=== PATIENT | male | born 1950 | race Caucasian/White ===

== ENCOUNTER → 2018-05-20 | Outpatient (CLI) | payer BC ==
[2018-05-20 09:42] LABS: HGB 15.3 gm/dL (13.0-17.5); MCH 29.6 pg (25.0-35.0); MCV 92.4 fL (80.0-100.0); Mean Platelet Volume 7.5; Platelet Count 219 k/uL (150-450); RBC 5.19 m/uL (4.30-5.90); RDW 13.1 % (11.5-15.5); WBC 5.1 k/uL (3.8-10.6)
[2018-05-20 09:53] LABS: Anion Gap 7 mmol/L; Blood Urea Nitrogen 18 mg/dL (9-20); Calcium 9.4 mg/dL (8.4-10.2); Carbon Dioxide 27 mmol/L (22-30); Chloride 108 mmol/L (98-107); Glucose 110 mg/dL (74-99); Potassium 4.9 mmol/L (3.5-5.1); Sodium 142 mmol/L (137-145)
== END | disposition home or self-care (01) ==
LOC: LABWHC1 08:49
PROVIDERS: ATTEND Internal Medicine Cardiovascular Disease
DX: I48.91 Unspecified atrial fibrillation (principal)
CPT/HCPCS: 36415; 80048; 85027; 85610

== ENCOUNTER → 2019-04-29 | Outpatient (CLI) | payer MEDICARE, BC ==
[2019-04-29 16:40] LABS: African American GFR (CKD) 107.1 (60.0-200.0); Albumin 4.4 g/dL (3.80-4.90); Albumin/Globulin Ratio 2.32 (1.60-3.17); BUN/Creat Ratio 17.5 Ratio (12.00-20.00); Calcium 9.1 mg/dL (8.7-10.3); Chol/HDL Ratio 3.7; Globulin 1.9 g/dL (1.6-3.3); Non-African American GFR(CKD) 92.4 (60.0-200.0); Potassium 4.7 mmol/L (3.5-5.5); Total Protein 6.3 g/dL (6.2-8.2)
== END | disposition home or self-care (01) ==
LOC: LABWHC1 11:07
PROVIDERS: ATTEND Internal Medicine Interventional Cardiology
DX: E78.2 Mixed hyperlipidemia (principal)
CPT/HCPCS: 36415; 80053; 80061

== ENCOUNTER → 2020-04-20 | Outpatient (CLI) | payer MEDICARE, BC ==
[2020-04-20 21:30] LABS: African American GFR (CKD) 102.1 (60.0-200.0); Albumin 4.7 g/dL (3.80-4.90); Albumin/Globulin Ratio 2.61 (1.60-3.17); Anion Gap 7.2 mmol/L (4.00-12.00); BUN/Creat Ratio 22.22 Ratio (12.00-20.00); Calcium 9.5 mg/dL (8.7-10.3); Carbon Dioxide 25.8 mmol/L (21.6-31.8); Chol/HDL Ratio 2.65; Globulin 1.8 g/dL (1.6-3.3); LDL Cholesterol,Calculated 51.4 mg/dL (0.0-131.0); Non-African American GFR(CKD) 88.1 (60.0-200.0); Potassium 4.4 mmol/L (3.5-5.5); Total Bilirubin 1.5 mg/dL (0.2-1.2); Total Protein 6.5 g/dL (6.2-8.2); VLDL Calculation 32.6 mg/dL (5.00-40.00)
== END | disposition home or self-care (01) ==
LOC: LABWHC1 12:26
PROVIDERS: ATTEND Nurse Practitioner Adult Health
DX: I10 Essential (primary) hypertension (principal); E78.2 Mixed hyperlipidemia
CPT/HCPCS: 36415; 80053; 80061

== ENCOUNTER 2021-04-23 18:08 | Observation (INO) | payer MEDICARE, BC ==
--- NOTE | 2021-04-23 18:38 | ED ---
General Adult HPI - General Chief complaint: Arrhythmia/Palpitations Stated complaint: AFib Time Seen by Provider: 04/23/21 18:19 Source: patient, family, RN notes reviewed Mode of arrival: ambulatory Limitations: no limitations - History of Present Illness Initial comments: Patient is a pleasant 70-year-old male presenting to the emergency department w ith concerns for atrophic ablation. Patient does have a history of similar symptoms several years ago. Patient did need to be cardioverted at that time. Patient does see Dr. lynch on. Patient is not currently on any blood thinners. Patient had heaviness in his chest starting yesterday morning. None today. Patient did check his monitor yesterday and today with report of A. fib with heart rate of 150. Patient does not have palpitations. No dyspnea. - Related Data Home Medications Medication Instructions Recorded Confirmed Aspirin EC [Ecotrin Low Dose] 81 mg PO DAILY 04/23/21 04/23/21 Atorvastatin [Lipitor] 20 mg PO DAILY 04/23/21 04/23/21 Metoprolol Succinate [Toprol XL] 25 mg PO BID 04/23/21 04/23/21 Allergies Allergy/AdvReac Type Severity Reaction Status Date / Time No Known Allergies Allergy Verified 04/23/21 19:34 Review of Systems ROS Statement: Those systems with pertinent positive or pertinent negative responses have been documented in the HPI. ROS Other: All systems not noted in ROS Statement are negative. Constitutional: Denies: fever Eyes: Denies: eye pain ENT: Denies: ear pain Respiratory: Denies: cough Cardiovascular: Reports: as per HPI Endocrine: Denies: fatigue Gastrointestinal: Denies: abdominal pain Genitourinary: Denies: dysuria Musculoskeletal: Denies: back pain Skin: Denies: rash Neurological: Denies: weakness Past Medical History Past Medical History: Atrial Fibrillation, Hyperlipidemia Additional Past Medical History / Comment(s): cardiac ablation. History of Any Multi-Drug Resistant Organisms: None Reported Past Surgical History: No Surgical Hx Reported, Hernia Repair Past Psychological History: No Psychological Hx Reported Smoking Status: Former smoker Past Alcohol Use History: None Reported Past Drug Use History: None Reported General Exam Limitations: no limitations General appearance: alert, in no apparent distress Head exam: Present: normocephalic Eye exam: Present: normal appearance Neck exam: Present: normal inspection Respiratory exam: Present: normal lung sounds bilaterally Cardiovascular Exam: Present: tachycardia, irregular rhythm Expanded Peripheral pulses: 2+: Radial (R), Radial (L), Dorsalis Pedis (R), Dorsalis Pedis (L) GI/Abdominal exam: Present: soft. Absent: tenderness Extremities exam: Present: normal inspection. Absent: pedal edema, calf tenderness Neurological exam: Present: alert Psychiatric exam: Present: normal affect, normal mood Skin exam: Present: normal color Course Vital Signs 04/23/21 04/23/21 04/23/21 18:18 19:10 20:00 Temperature 97.8 F Pulse Rate 60 86 71 Respiratory 18 16 15 Rate Blood Pressure 150/93 131/86 121/94 O2 Sat by Pulse 100 Oximetry EKG Findings - EKG Comments: EKG Findings:: A. fib with a rate of 103, RVR. QRS 92. QT 350. QTC 458. Normal axis. Normal QRS. No acute ST change. Medical Decision Making - Medical Decision Making Heart rate improve with Cardizem. Patient will be started on anticoagulation with consult with cardiology. Case discussed with Dr. perez, who will admit for hospital call. - Lab Data Result diagrams: 04/23/21 18:40 04/23/21 18:40 Lab Results 04/23/21 04/23/21 04/23/21 Range/Units 18:40 18:40 18:40 WBC 8.7 (3.8-10.6) k/uL RBC 5.04 (4.30-5.90) m/uL Hgb 16.0 (13.0-17.5) gm/dL Hct 46.9 (39.0-53.0) % MCV 93.1 (80.0-100.0) fL MCH 31.8 (25.0-35.0) pg MCHC 34.2 (31.0-37.0) g/dL RDW 12.6 (11.5-15.5) % Plt Count 224 (150-450) k/uL MPV 8.6 Neutrophils % 48 % Lymphocytes % 41 % Monocytes % 6 % Eosinophils % 3 % Basophils % 1 % Neutrophils # 4.2 (1.3-7.7) k/uL Lymphocytes # 3.6 (1.0-4.8) k/uL Monocytes # 0.5 (0-1.0) k/uL Eosinophils # 0.3 (0-0.7) k/uL Basophils # 0.0 (0-0.2) k/uL PT 10.5 (9.0-12.0) sec INR 1.0 (<1.2) APTT 24.5 (22.0-30.0) sec Sodium 136 L (137-145) mmol/L Potassium 4.4 (3.5-5.1) mmol/L Chloride 104 (98-107) mmol/L Carbon Dioxide 23 (22-30) mmol/L Anion Gap 9 mmol/L BUN 20 (9-20) mg/dL Creatinine 0.89 (0.66-1.25) mg/dL Est GFR (CKD-EPI)AfAm >90 (>60 ml/min/1.73 sqM) Est GFR (CKD-EPI)NonAf 88 (>60 ml/min/1.73 sqM) Glucose 102 H (74-99) mg/dL Calcium 9.2 (8.4-10.2) mg/dL Magnesium 2.1 (1.6-2.3) mg/dL Total Bilirubin 1.3 (0.2-1.3) mg/dL AST 31 (17-59) U/L ALT 24 (4-49) U/L Alkaline Phosphatase 61 (38-126) U/L Troponin I (0.000-0.034) ng/mL Total Protein 7.2 (6.3-8.2) g/dL Albumin 4.4 (3.5-5.0) g/dL TSH 4.070 (0.465-4.680) mIU/L Free T4 1.22 (0.78-2.19) ng/dL Free T3 pg/mL 3.8 (2.8-5.3) pg/ml Coronavirus (PCR) (Not Detectd) 04/23/21 04/23/21 Range/Units 18:40 18:45 WBC (3.8-10.6) k/uL RBC (4.30-5.90) m/uL Hgb (13.0-17.5) gm/dL Hct (39.0-53.0) % MCV (80.0-100.0) fL MCH (25.0-35.0) pg MCHC (31.0-37.0) g/dL RDW (11.5-15.5) % Plt Count (150-450) k/uL MPV Neutrophils % % Lymphocytes % % Monocytes % % Eosinophils % % Basophils % % Neutrophils # (1.3-7.7) k/uL Lymphocytes # (1.0-4.8) k/uL Monocytes # (0-1.0) k/uL Eosinophils # (0-0.7) k/uL Basophils # (0-0.2) k/uL PT (9.0-12.0) sec INR (<1.2) APTT (22.0-30.0) sec Sodium (137-145) mmol/L Potassium (3.5-5.1) mmol/L Chloride (98-107) mmol/L Carbon Dioxide (22-30) mmol/L Anion Gap mmol/L BUN (9-20) mg/dL Creatinine (0.66-1.25) mg/dL Est GFR (CKD-EPI)AfAm (>60 ml/min/1.73 sqM) Est GFR (CKD-EPI)NonAf (>60 ml/min/1.73 sqM) Glucose (74-99) mg/dL Calcium (8.4-10.2) mg/dL Magnesium (1.6-2.3) mg/dL Total Bilirubin (0.2-1.3) mg/dL AST (17-59) U/L ALT (4-49) U/L Alkaline Phosphatase (38-126) U/L Troponin I <0.012 (0.000-0.034) ng/mL Total Protein (6.3-8.2) g/dL Albumin (3.5-5.0) g/dL TSH (0.465-4.680) mIU/L Free T4 (0.78-2.19) ng/dL Free T3 pg/mL (2.8-5.3) pg/ml Coronavirus (PCR) Not Detected (Not Detectd) Critical Care Time Critical Care Time: Yes Total Critical Care Time: 32 Disposition Clinical Impression: Atrial fibrillation, Tachycardia Disposition: ADMITTED IP TO THIS [facility] Is patient prescribed a controlled substance at d/c from ED?: No Referrals: Carlos Dale MD [Primary Care Provider] - 1-2 days Decision Time: 20:28
[2021-04-23] MEDS ORDERED: DILTIAZEM 125 MG in SODIUM CHLORIDE 0.9% 100 ML IV SCH (18:45)
[2021-04-23 18:56] LABS: Partial Thromboplastin Time 24.5 sec (22.0-30.0); Prothrombin Time 10.5 sec (9.0-12.0)
[2021-04-23 18:57] LABS: Basophils % (A) 1 %; Eosinophils # (A) 0.3 k/uL (0-0.7); Eosinophils % (A) 3 %; HCT 46.9 % (39.0-53.0); Lymphocytes # (A) 3.6 k/uL (1.0-4.8); Lymphocytes % (A) 41 %; MCH 31.8 pg (25.0-35.0); MCHC 34.2 g/dL (31.0-37.0); MCV 93.1 fL (80.0-100.0); Mean Platelet Volume 8.6; Monocytes # (A) 0.5 k/uL (0-1.0); Monocytes % (A) 6 %; Neutrophils # (A) 4.2 k/uL (1.3-7.7); Neutrophils % (A) 48 %; Platelet Count 224 k/uL (150-450); RBC 5.04 m/uL (4.30-5.90); RDW 12.6 % (11.5-15.5); WBC 8.7 k/uL (3.8-10.6)
[2021-04-23 18:58] LABS: ALT 24 U/L (4-49); AST 31 U/L (17-59); African American GFR (CKD) >90 (>60 ml/min/1.73 sqM); Albumin 4.4 g/dL (3.5-5.0); Alkaline Phosphatase 61 U/L (38-126); Anion Gap 9 mmol/L; Blood Urea Nitrogen 20 mg/dL (9-20); Calcium 9.2 mg/dL (8.4-10.2); Carbon Dioxide 23 mmol/L (22-30); Chloride 104 mmol/L (98-107); Glucose 102 mg/dL (74-99); Magnesium 2.1 mg/dL (1.6-2.3); Non-African American GFR(CKD) 88 (>60 ml/min/1.73 sqM); Potassium 4.4 mmol/L (3.5-5.1); Sodium 136 mmol/L (137-145); Total Bilirubin 1.3 mg/dL (0.2-1.3); Total Protein 7.2 g/dL (6.3-8.2)
--- NOTE | 2021-04-23 19:11 | XR ---
EXAMINATION TYPE: XR chest 1V portable DATE OF EXAM: 04/23/2021 COMPARISON: NONE HISTORY: Dysrhythmia TECHNIQUE: Single view FINDINGS: There is no heart failure no confluent pneumonic infiltrate. Costophrenic angles are clear. There are no hilar masses. Costophrenic angles are clear. There are no hilar masses. IMPRESSION: No active cardiopulmonary disease. Normal heart.
[2021-04-23 19:15] LABS: T4, Free (Free Thyroxine) 1.22 ng/dL (0.78-2.19)
[2021-04-23] MEDS ORDERED: HEPARIN SODIUM 1,000 UN/ML (10ML VL) IV PRN (20:29)
[2021-04-23] MEDS ORDERED: HEPARIN SODIUM 1,000 UN/ML (10ML VL) IV ONE (20:29)
[2021-04-23] MEDS ORDERED: NALOXONE 0.4 MG/ML 1 ML VIAL IV PRN (20:29)
[2021-04-23] MEDS: HEPARIN SOD,PORK IN 0.45% NACL 25,000 UNIT in 0.45% NACL 1 250ML.BAG IV SCH (21:15)
[2021-04-23] MEDS: SODIUM CHLORIDE 0.9% 1,000 ML IV SCH (21:19)
--- NOTE | 2021-04-23 23:37 | P.HPIM ---
History of Present Illness H&P Date: 04/23/21 Patient is a 70-year-old male with a PMH of hypertension, hyperlipidemia, paroxysmal A. fib not on anticoagulation (unknown reason), who presented to the emergency room with complaints of feeling fatigued. The patient reports that he had been in his usual state of health until yesterday morning when he woke up feeling diffusely weak. He continued experiencing fatigue and had some occasional palpitations at which time his brought him to the emergency room. He denied experiencing chest discomfort, shortness of breath, nausea, vomiting, diaphoresis. Reports that his Lopressor dose was recently decreased from 25 mg in the morning and 50 mg at bedtime to 25 mg twice a day. He reports following up with cardiology every year. Denied experiencing cough, fever, chills, abdominal pain, diarrhea. In the emergency room EKG revealed A. fib with RVR at [address]/T-wave changes noted as reviewed by me. Chest x- ray was unremarkable. Laboratory evaluation revealed a troponin of less than 0.012. Review of systems: Pertinent positives and negatives as discussed in HPI, a complete review of systems was performed and all other systems are negative. Physical examination: General: non toxic, no distress, appears at stated age, overweight Derm: no unusual rashes/lesions no unusual ecchymoses, warm, dry Head: atraumatic, normocephalic, symmetric Eyes: EOMI, no lid lag, anicteric sclera, pupils equal round reactive to light ENT: Nose and ears atraumatic, no thrush, no pharyngeal erythema Neck: No thyromegaly, no cervical lymphadenopathy, trachea midline, supple Mouth: no lip lesion, mucus membranes moist Cardiovascular: S1S2 reg, no murmur, positive posterior tibial pulse bilateral, no edema, capillary refill less than 2 seconds Lungs: CTA bilateral, no rhonchi, no rales , no accessory muscle use Abdominal: soft, nontender to palpation, no guarding, no appreciable or ganomegaly, normal bowel sounds Ext: no gross muscle atrophy, muscle strength 5 out of 5 in all 4 extremities grossly, no contractures, Neuro: CN II-XI grossly intact, light touch intact all 4 extremities, finger to nose within normal limits, Psych: Alert, oriented, appropriate affect Assessment/plan A. fib with RVR -Continue with Cardizem and heparin infusions -Cardiology consult -Cardiac monitoring Chronic conditions: Hypertension, hyperlipidemia -Continue with home meds DVT prophylaxis -Heparin infusion The patient is admitted with an anticipated less than 2 midnight stay for evalu ation of Afib CODE STATUS: Full Code Discussed with: Patient Anticipated discharge date: in am Anticipated discharge place: Home Past Medical History Past Medical History: Atrial Fibrillation, Hyperlipidemia Additional Past Medical History / Comment(s): cardiac ablation. History of Any Multi-Drug Resistant Organisms: None Reported Past Surgical History: No Surgical Hx Reported, Hernia Repair Past Psychological History: No Psychological Hx Reported Smoking Status: Former smoker Past Alcohol Use History: None Reported Past Drug Use History: None Reported Medications and Allergies Home Medications Medication Instructions Recorded Confirmed Type Aspirin EC [Ecotrin Low Dose] 81 mg PO DAILY 04/23/21 04/23/21 History Atorvastatin [Lipitor] 20 mg PO DAILY 04/23/21 04/23/21 History Metoprolol Succinate [Toprol XL] 25 mg PO BID 04/23/21 04/23/21 History Allergies Allergy/AdvReac Type Severity Reaction Status Date / Time No Known Allergies Allergy Verified 04/23/21 19:34 Physical Exam Vitals: Vital Signs Temp Pulse Pulse Resp BP BP Pulse Ox 04/23/21 22:15 97.9 F 83 18 139/99 98 04/23/21 21:00 97.8 F 84 16 134/96 98 04/23/21 20:00 71 15 121/94 04/23/21 19:10 86 16 131/86 04/23/21 18:18 97.8 F 60 18 150/93 100 Intake and Output 04/23/21 04/23/21 04/23/21 06:59 14:59 22:59 Other: Weight 90.718 kg Results CBC & Chem 7: 04/23/21 18:40 04/23/21 18:40 Labs: Abnormal Lab Results - Last 24 Hours (Table) 04/23/21 Range/Units 18:40 Sodium 136 L (137-145) mmol/L Glucose 102 H (74-99) mg/dL
[2021-04-24 04:15] LABS: Basophils # (A) 0.1 k/uL (0-0.2); Basophils % (A) 1 %; Eosinophils # (A) 0.3 k/uL (0-0.7); Eosinophils % (A) 4 %; HCT 45.4 % (39.0-53.0); HGB 15.3 gm/dL (13.0-17.5); Lymphocytes # (A) 3.6 k/uL (1.0-4.8); Lymphocytes % (A) 47 %; MCH 31.7 pg (25.0-35.0); MCHC 33.8 g/dL (31.0-37.0); MCV 93.7 fL (80.0-100.0); Monocytes # (A) 0.5 k/uL (0-1.0); Monocytes % (A) 6 %; Neutrophils # (A) 3.1 k/uL (1.3-7.7); Neutrophils % (A) 40 %; Platelet Count 207 k/uL (150-450); RBC 4.84 m/uL (4.30-5.90); RDW 12.1 % (11.5-15.5); WBC 7.7 k/uL (3.8-10.6)
[2021-04-24 04:26] LABS: Prothrombin Time 11.2 sec (9.0-12.0)
--- NOTE | 2021-04-24 09:44 | P.PN ---
Subjective Patient was examined at bedside today not complaining of any new symptomatology. She states that this started apparently last week also to Sunday when he started having some palpitations. He was instructed by his to come in to the emergency department who's a RN. Of note patient does have a history of cardioversion a few years ago and has not been on any anticoagulation. He does endorse drinking significantly approximately 10-12 beers weekly with 4-5 shots. Other risk factors he try to identify was use of Rogaine and family stressors. Objective - Vital Signs Vital signs: Vital Signs Temp 97.7 F 04/24/21 07:00 Pulse 74 04/24/21 07:00 Resp 18 04/24/21 07:00 BP 107/76 04/24/21 07:00 Pulse Ox 97 04/24/21 07:00 Intake & Output 04/23/21 04/24/21 04/24/21 18:59 06:59 18:59 Intake Total 75.167 Balance 75.167 Weight 90.718 kg 90.718 kg Intake: Intake, IV Titration 75.167 Amount Heparin Sod,Pork in 0.45% 75.167 NaCl 25,000 unit In 0.45 % NaCl 1 250ml.bag @ 11. 0232 UNITS/KG/HR 10 mls/ hr IV .Q24H [facility] Rx#: [id number] Other: Voiding Method Toilet # Voids 1 - Exam Physical examination: General: non toxic, no distress, appears at stated age, overweight Derm: no unusual rashes/lesions no unusual ecchymoses, warm, dry Head: atraumatic, normocephalic, symmetric Mouth: no lip lesion, mucus membranes moist Cardiovascular: S1S2 reg, no murmur, positive, no edema, capillary refill less than 2 seconds Lungs: CTA bilateral, no rhonchi, no rales , no accessory muscle use Abdominal: soft, nontender to palpation, no guarding, no appreciable organomegaly, normal bowel sounds Ext: no gross muscle atrophy, muscle strength 5 out of 5 in all 4 extremities grossly, no contractures, Neuro: CN II-XI grossly intact, light touch intact all 4 extremities, finger to nose within normal limits, Psych: Alert, oriented, appropriate affect - Labs CBC & Chem 7: 04/24/21 03:46 04/23/21 18:40 Labs: Abnormal Lab Results - Last 24 Hours (Table) 04/23/21 04/24/21 Range/Units 18:40 03:46 APTT 36.0 H (22.0-30.0) sec Sodium 136 L (137-145) mmol/L Glucose 102 H (74-99) mg/dL Assessment and Plan Assessment: Assessment: #1 atrial fibrillation with RVR status post cardioversion in the past #2 essential hypertension #3 hyperlipidemia #4 alcohol dependence Plan: -Admit to medicine for close monitoring -Aspiration/fall precaution -Continue with Cardizem drip which has been held patient's currently rate controlled maintain heart rate less than 110 bpm -TSH within normal limits -Obtain 2-D echocardiogram -Patient probably started on heparin drip and transition to oral on discharge -Cardiology consulted -DVT prophylaxis
[2021-04-24] MEDS: ASPIRIN 81 MG PO SCH (09:45)
[2021-04-24] MEDS: METOPROLOL SUCCINATE (ER) 25 MG TAB.ER.24H PO SCH ×2 (09:45→20:37)
[2021-04-24] MEDS: ATORVASTATIN 20 MG TAB PO SCH (09:45)
--- NOTE | 2021-04-24 12:03 | P.CRDCN ---
History of Present Illness Consult date: 04/24/21 Chief complaint: Heart racing History of present illness: The patient is a pleasant 70-year-old gentleman with a past medical history significant for paroxysmal atrial fibrillation for some reasons he was not receiving oral anticoagulation, as well as hypertension and dyslipidemia who presented to the hospital because he was not feeling well. The patient was experiencing symptoms of being tired and fatigued and beside that he has been experiencing symptoms of heart racing/fluttering but no dizziness or lightheadedness and no presyncope or syncope. No symptoms of anginal chest pain or chest discomfort or shortness of breath. 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 Currently he is in A. fib with controlled heart rate on the current dose of beta raghu which is Toprol-XL 25 mg by mouth twice a day. He is on heparin IV. The EKG showed A. fib with diffuse nonspecific ST and T wave abnormalities. 2 sets of cardiac enzymes were checked and came in to be unremarkable. He is overall feeling better. No history of coronary artery disease or congestive heart failure. Past Medical History Past Medical History: Atrial Fibrillation, Hyperlipidemia Additional Past Medical History / Comment(s): cardiac ablation. History of Any Multi-Drug Resistant Organisms: None Reported Past Surgical History: No Surgical Hx Reported, Hernia Repair Past Psychological History: No Psychological Hx Reported Smoking Status: Former smoker Past Alcohol Use History: None Reported Past Drug Use History: None Reported Medications and Allergies Home Medications Medication Instructions Recorded Confirmed Type Aspirin EC [Ecotrin Low Dose] 81 mg PO DAILY 04/23/21 04/23/21 History Atorvastatin [Lipitor] 20 mg PO DAILY 04/23/21 04/23/21 History Metoprolol Succinate [Toprol XL] 25 mg PO BID 04/23/21 04/23/21 History Allergies Allergy/AdvReac Type Severity Reaction Status Date / Time No Known Allergies Allergy Verified 04/23/21 19:34 Physical Exam Vitals: Vital Signs Temp Pulse Pulse Resp BP BP Pulse Ox 04/24/21 07:00 97.7 F 74 18 107/76 97 04/24/21 01:36 97.7 F 71 16 101/71 100 04/23/21 22:15 97.9 F 83 18 139/99 98 04/23/21 21:00 97.8 F 84 16 134/96 98 04/23/21 20:00 71 15 121/94 04/23/21 19:10 86 16 131/86 04/23/21 18:18 97.8 F 60 18 150/93 100 Intake and Output 04/23/21 04/24/21 04/24/21 22:59 06:59 14:59 Intake Total 75.167 59.858 Balance 75.167 59.858 Intake: Intake, IV Titration 75.167 59.858 Amount Heparin Sod,Pork in 0.45% 75.167 59.858 NaCl 25,000 unit In 0.45 % NaCl 1 250ml.bag @ 11. 0232 UNITS/KG/HR 10 mls/ hr IV .Q24H [facility] Rx#: [id number] Other: Voiding Method Toilet Toilet # Voids 0 1 Weight 90.718 kg - Constitutional General appearance: no acute distress - Respiratory Respiratory: bilateral: diminished - Cardiovascular Rhythm: irregularly irregular Heart sounds: normal: S1, S2 Results 04/24/21 03:46 04/23/21 18:40 Cardiac Enzymes 04/23/21 04/23/21 04/23/21 Range/Units 18:40 18:40 21:35 AST 31 (17-59) U/L Troponin I <0.012 <0.012 (0.000-0.034) ng/mL 04/24/21 Range/Units 00:39 AST (17-59) U/L Troponin I <0.012 (0.000-0.034) ng/mL Coagulation 04/23/21 04/24/21 04/24/21 Range/Units 18:40 03:46 11:10 PT 10.5 11.2 (9.0-12.0) sec APTT 24.5 36.0 H 51.2 H (22.0-30.0) sec CBC 04/23/21 04/24/21 Range/Units 18:40 03:46 WBC 8.7 7.7 (3.8-10.6) k/uL RBC 5.04 4.84 (4.30-5.90) m/uL Hgb 16.0 15.3 (13.0-17.5) gm/dL Hct 46.9 45.4 (39.0-53.0) % Plt Count 224 207 (150-450) k/uL Comprehensive Metabolic Panel 04/23/21 Range/Units 18:40 Sodium 136 L (137-145) mmol/L Potassium 4.4 (3.5-5.1) mmol/L Chloride 104 (98-107) mmol/L Carbon Dioxide 23 (22-30) mmol/L BUN 20 (9-20) mg/dL Creatinine 0.89 (0.66-1.25) mg/dL Glucose 102 H (74-99) mg/dL Calcium 9.2 (8.4-10.2) mg/dL AST 31 (17-59) U/L ALT 24 (4-49) U/L Alkaline Phosphatase 61 (38-126) U/L Total Protein 7.2 (6.3-8.2) g/dL Albumin 4.4 (3.5-5.0) g/dL Current Medications Generic Name Dose Route Start Last Admin Trade Name Freq PRN Reason Stop Dose Admin Aspirin 81 mg 04/24/21 09:00 04/24/21 09:45 Aspirin 81 Mg PO 81 mg DAILY NANCY Administration Atorvastatin Calcium 20 mg 04/24/21 09:00 04/24/21 09:45 Atorvastatin 20 Mg Tab PO 20 mg DAILY NANCY Administration Heparin Sodium (Porcine) 0 unit 04/23/21 20:29 04/24/21 04:47 Heparin Sodium 1,000 Un/Ml (10ml Vl) IV 2,267 unit PER PROTOCOL PRN Administration Low PTT Protocol Diltiazem HCl 125 mg/ Sodium 125 mls @ 5 mls/hr 04/23/21 18:45 04/23/21 19:05 Chloride IV 2.5 mg/hr .Q24H NANCY 2.5 mls/hr Administration 5 MG/HR Heparin Sodium/Sodium Chloride 250 mls @ 10 mls/hr 04/23/21 20:30 04/24/21 09:50 25,000 unit/ Sodium Chloride IV 13.84 units/kg/hr .Q24H NANCY 12.555 mls/hr Titration Protocol 11.0232 UNITS/KG/HR Sodium Chloride 1,000 mls @ 75 mls/hr 04/23/21 20:30 04/23/21 21:19 Saline 0.9% IV 75 mls/hr .[id number] NANCY Administration Metoprolol Succinate 25 mg 04/24/21 09:00 04/24/21 09:45 Metoprolol Succinate (Er) 25 Mg Tab.Er.24h PO 25 mg BID NANCY Administration Naloxone HCl 0.2 mg 04/23/21 20:29 Naloxone 0.4 Mg/Ml 1 Ml Vial IV Q2M PRN Opioid Reversal Intake and Output 04/23/21 04/24/21 04/24/21 22:59 06:59 14:59 Intake Total 75.167 59.858 Balance 75.167 59.858 Intake: Intake, IV Titration 75.167 59.858 Amount Heparin Sod,Pork in 0.45% 75.167 59.858 NaCl 25,000 unit In 0.45 % NaCl 1 250ml.bag @ 11. 0232 UNITS/KG/HR 10 mls/ hr IV .Q24H [facility] Rx#: [id number] Other: Voiding Method Toilet Toilet # Voids 0 1 Weight 90.718 kg 04/24/21 03:46 04/23/21 18:40 Assessment and Plan Assessment: Assessment #1 paroxysmal atrial fibrillation #2 atrial fibrillation was controlled heart rate #3 hypertension #4 dyslipidemia Plan #1 continue the current dose of metoprolol by mouth #2 consider switching the patient to oral anticoagulation in the next 24 hours #3 obtain an echocardiogram was Doppler #4 further assess the need for either a rate control strategy or rhythm control strategy, depending on the patient's symptoms #5 follow-up with the patient
[2021-04-24] MEDS: HEPARIN SOD,PORK IN 0.45% NACL 25,000 UNIT in 0.45% NACL 1 250ML.BAG IV SCH (16:48)
[2021-04-24] MEDS: SODIUM CHLORIDE 0.9% 1,000 ML IV SCH ×2 (18:59→21:57)
[2021-04-25 08:15] VITALS: RESP 18
[2021-04-25] MEDS: ATORVASTATIN 20 MG TAB PO SCH (09:13)
[2021-04-25] MEDS: ASPIRIN 81 MG PO SCH (09:13)
[2021-04-25] MEDS: METOPROLOL SUCCINATE (ER) 25 MG TAB.ER.24H PO SCH (09:13)
[2021-04-25] MEDS ORDERED: RIVAROXABAN 20 MG TAB PO SCH (11:20)
--- NOTE | 2021-04-25 11:44 | P.PN ---
Subjective This is a 70-year-old male with past medical history of paroxysmal atrial fibrillation not on anticoagulation, hypertension, dyslipidemia, former nicotine dependence. He follows in the office with Dr. Jackson. We have instructed for atrial fibrillation with rapid ventricular response. Patient presented to the hospital with complaints of heart racing/fluttering. His checked his pulse at home and it was irregular and patient was brought to the emergency department. EKG revealed atrial fibrillation with heart rate 103. Troponin was negative 3. Patient seen and examined at bedside, no acute distress. He denies any palpitations, lightheadedness, dizziness, chest pain or shortness of breath. He continues to be in atrial fibrillation with controlled ventricular rates. Overnight at 6 PM he did go into an episode of atrial fibrillation with rapid ventricular response, no medications were given and heart rate improved. He's currently maintained on aspirin 81 mg daily, atorvastatin 20 mg daily, IV heparin, metoprolol 25 mg twice a day GENERAL: Well-appearing, well-nourished and in no acute distress. NECK: Supple without JVD or thyromegaly. LUNGS: Breath sounds clear to auscultation bilaterally. Respiration equal and unlabored. No wheezes, rales or rhonchi. HEART: Irregular rate and rhythm without murmurs, rubs or gallops. S1 and S2 heard. EXTREMITIES: Normal range of motion, no edema. No clubbing or cyanosis. Peripheral pulses intact. ASSESSMENT Paroxysmal atrial fibrillation with RVR [id number] score 2 History of hypertension Dyslipidemia PLAN Stop IV heparin Start Xarelto 20mg daily, per case management Xarelto covered with copay $20/month Stop aspirin Obtain 2D echocardiogram If echocardiogram with no acute findings, ok to discharge home today with Xarelto Continue statin and metoprolol succinate Follow up with Dr. Jackson. Patient has a follow up appointment on 05/03/2021 Nurse Practitioner note has been reviewed, I agree with a documented findings and plan of care. Patient was seen and examined. Objective - Vital Signs Vital signs: Vital Signs Temp 98.4 F 04/25/21 07:00 Pulse 67 04/25/21 08:00 Resp 18 04/25/21 08:00 BP 109/75 04/25/21 07:00 Pulse Ox 98 04/25/21 07:00 Intake & Output 04/24/21 04/25/21 04/25/21 18:59 06:59 18:59 Intake Total 627.325 96.279 240 Balance 627.325 96.279 240 Intake: Intake, IV Titration 147.325 96.279 Amount Heparin Sod,Pork in 0.45% 147.325 96.279 NaCl 25,000 unit In 0.45 % NaCl 1 250ml.bag @ 11. 0232 UNITS/KG/HR 10 mls/ hr IV .Q24H [facility] Rx#: [id number] Oral 480 240 Other: Voiding Method Toilet Toilet Toilet # Voids 1 2 0 - Labs CBC & Chem 7: 04/24/21 03:46 04/23/21 18:40 Labs: Abnormal Lab Results - Last 24 Hours (Table) 04/24/21 04/24/21 04/24/21 Range/Units 11:10 15:52 22:23 APTT 51.2 H 43.0 H 45.2 H (22.0-30.0) sec
[2021-04-25 14:48] VITALS: BP 103/69; PULSE 70; TEMP 98.3
--- NOTE | 2021-04-25 16:11 | P.DS ---
Providers Date of admission: 04/23/21 20:29 Expected date of discharge: 04/25/21 Attending physician: Lisandra Howell MD Consults: 04/23/21 20:30 Consult Physician Routine Consulting Provider: Ambrosio Cantrell Consult Reason/Comments: a fib Do you want consulting provider notified?: Yes Primary care physician: Carlos Dale MD Hospital Course: Discharge Diagnosis: P. A fib with RVR Hypertension Dyslipidemia EtOH misuse Hospital Course: Patient is a 70-year-old male past medical history of hypertension, dyslipidem ia, paroxysmal A. fib on aspirin presented to the ER with complaints of feeling fatigued. He was found to have A. fib with a heart rate of 103. Chest x-ray was unremarkable and initial troponin was negative. He was admitted as October. He was started on a heparin drip. He was seen by cardiology. If continued on his home dose of metoprolol. Troponin remained negative. He was started on Eliquis. He underwent an echocardiogram which per verbal report showed a preserved ejection fraction 55-60% and no significant changes. Is determined stable for discharge home. He will continue on Xarelto and his metoprolol. He'll follow-up with Dr. Jackson on 05/03/21. Patient seen and examined at bedside. Ferling back to baseline, no chest pain, no longer fatigued or winded asking about cardioversion as a possability again and discussed with recommendation for therapeutic anticoagulation for 4-6 weeks berfore that type of procedure and patient agrees. Vital signs reviewed and stable. General: non toxic, no distress, appears at stated age Derm: warm, dry Head: atraumatic, normocephalic, symmetric Eyes: EOMI, no lid lag, anicteric sclera Mouth: no lip lesion, mucus membranes moist Cardiovascular: S1S2 reg, no murmur, positive posterior tibial pulse bilateral, Lungs: CTA bilateral, no rhonchi, no rales , no accessory muscle use Abdominal: soft, nontender to palpation, no guarding, no appreciable organomegaly Ext: no gross muscle atrophy, no edema, no contractures Neuro: CN II-XI grossly intact, no focal neuro deficits Psych: Alert, oriented, appropriate affect A total of 27 minutes of time were spent preparing this complex discharge summary . Plan - Discharge Summary Discharge Rx Participant: No New Discharge Prescriptions: New Rivaroxaban [Xarelto] 20 mg PO DAILY 30 Days #30 tab Continue Metoprolol Succinate [Toprol XL] 25 mg PO BID Atorvastatin [Lipitor] 20 mg PO DAILY Discontinued Aspirin EC [Ecotrin Low Dose] 81 mg PO DAILY Discharge Medication List Atorvastatin [Lipitor] 20 mg PO DAILY 04/23/21 [History] Metoprolol Succinate [Toprol XL] 25 mg PO BID 04/23/21 [History] Rivaroxaban [Xarelto] 20 mg PO DAILY 30 Days #30 tab 04/25/21 [Rx] Follow up Appointment(s)/Referral(s): Arturo Jackson MD [STAFF PHYSICIAN] - 05/03/21 Carlos Dale MD [Primary Care Provider] - 1-2 days Patient Instructions/Handouts: Rivaroxaban (By mouth), A-fib (Atrial Fibrillation) (DC) Activity/Diet/Wound Care/Special Instructions: Activity: As tolerated Diet: Heart Healthy Diet Special Instructions: Return if heart rate with activity is greater than 110 Discharge Disposition: HOME SELF-CARE
--- NOTE | 2021-04-25 17:00 | ECHOF ---
Referral Reason:A fib MEASUREMENTS -------- HEIGHT: 182.9 cm WEIGHT: 90.7 kg BP: 130/82 RVIDd: 3.8 cm (< 3.3) IVSd: 1.2 cm (0.6 - 1.1) LVIDd: 4.8 cm (3.9 - 5.3) LVPWd: 1.1 cm (0.6 - 1.1) IVSs: 1.7 cm LVIDs: 3.2 cm LVPWs: 1.7 cm LAESV Index (A-L): 23.38 ml/m Ao Diam: 2.8 cm (2.0 - 3.7) AV Cusp: 2.3 cm (1.5 - 2.6) LA Diam: 3.5 cm (2.7 - 3.8) MV EXCURSION: 22.667 mm (> 18.000) MV EF SLOPE: 113 mm/s (70 - 150) EPSS: 0.5 cm RAP: 5.00 mmHg RVSP: 30.72 mmHg FINDINGS -------- Atrial fibrillation. This was a technically adequate study. The left ventricular size is normal. There is mild concentric left ventricular hypertrophy. Overa ll left ventricular systolic function is low-normal with, an EF between 50 - 55 %. Left ventricular fillimg pressure cannot be estimated due to Atrial fibrillation. The right ventricle is mild to moderately enlarged. Normal LA size by volume 22+/-6 ml/m2. The right atrium is mildly enlarged. Interatrial and interventricular septum intact. There is no evidence of aortic regurgitation. There is no evidence of aortic stenosis. There is trace mitral regurgitation. Mild tricuspid regurgitation present. There is no evidence of pulmonary hypertension. The right v entricular systolic pressure, as measured by Doppler, is 30.72mmHg. There is no pulmonic regurgitation present. The aortic root size is normal. Normal inferior vena cava with normal inspiratory collapse consistent with estimated right atrial pre ssure of 5 mmHg. There is no pericardial effusion. CONCLUSIONS -------- 1. The left ventricular size is normal. 2. There is mild concentric left ventricular hypertrophy. 3. Overall left ventricular systolic function is low-normal with, an EF between 50 - 55 %. 4. Left ventricular fillimg pressure cannot be estimated due to Atrial fibrillation. 5. The right ventricle is mild to moderately enlarged. 6. The right atrium is mildly enlarged. 7. Mild tricuspid regurgitation present. ADVERTISING STRATEGIST: Liyah Smart RDCS
== END 2021-04-25 16:53 | disposition home or self-care (01) ==
LOC: EC 18:08 → 6NMEDSUR 20:29
PROVIDERS: ADMIT Internal Medicine; ATTEND Internal Medicine
DX: I48.0 Paroxysmal atrial fibrillation (principal); I10 Essential (primary) hypertension; E78.5 Hyperlipidemia, unspecified; R00.2 Palpitations; R00.0 Tachycardia, unspecified; F10.20 Alcohol dependence, uncomplicated; I36.1 Nonrheumatic tricuspid (valve) insufficiency; Z20.822 Contact with and (suspected) exposure to COVID-19; Z87.891 Personal history of nicotine dependence; Z79.82 Long term (current) use of aspirin; Z79.899 Other long term (current) drug therapy
CPT/HCPCS: 96376 ×2; 96366 ×4; 96368; 96365; 99291; 36415; 93005; 93306; 84439; 84481; 80053; 83735; 84443; 84484 ×2; 85025 ×2; 85610 ×2; 85730 ×2; 87635; 71045; G0378 ×3; J1644 ×4

== ENCOUNTER → 2021-04-29 | Outpatient (CLI) | payer MEDICARE, BC ==
[2021-04-29 15:54] LABS: ALT 31 U/L (10-49); AST 18 U/L (14-35); Albumin 4.5 g/dL (3.8-4.9); Albumin/Globulin Ratio 2.34 (1.60-3.17); Alkaline Phosphatase 57 U/L (41-126); BUN/Creat Ratio 21.74 Ratio (12.00-20.00); Calcium 9.4 mg/dL (8.7-10.3); Carbon Dioxide 25.3 mmol/L (20.0-27.5); Chloride 104 mmol/L (96-109); Chol/HDL Ratio 2.68 Ratio; Globulin 1.9 g/dL (1.6-3.3); Glucose 99 mg/dL (70-110); Non-African American GFR(CKD) 84.6 (60.0-200.0); Potassium 4.9 mmol/L (3.5-5.5); Sodium 140 mmol/L (135-145); Total Protein 6.4 g/dL (6.2-8.2)
== END | disposition home or self-care (01) ==
LOC: LABWHC1 09:59
PROVIDERS: ATTEND Internal Medicine Interventional Cardiology
DX: E78.2 Mixed hyperlipidemia (principal)
CPT/HCPCS: 36415; 80053; 80061

== ENCOUNTER → 2021-10-12 | Outpatient (CLI) | payer MEDICARE, BC ==
[2021-10-13 02:53] LABS: ALT 18 U/L (10-49); AST 18 U/L (14-35); African American GFR (CKD) 102.7 (60.0-200.0); Albumin 4.4 g/dL (3.8-4.9); Albumin/Globulin Ratio 2.04 (1.60-3.17); Alkaline Phosphatase 57 U/L (41-126); BUN/Creat Ratio 18.69 Ratio (12.00-20.00); Calcium 9.2 mg/dL (8.7-10.3); Carbon Dioxide 23.9 mmol/L (20.0-27.5); Chloride 103 mmol/L (96-109); Chol/HDL Ratio 2.91 Ratio; Globulin 2.2 g/dL (1.6-3.3); Glucose 93 mg/dL (70-110); LDL Cholesterol,Calculated 64.5 mg/dL (0.0-131.0); Non-African American GFR(CKD) 88.7 (60.0-200.0); Potassium 4.2 mmol/L (3.5-5.5); Sodium 138 mmol/L (135-145); Total Protein 6.6 g/dL (6.2-8.2)
== END | disposition home or self-care (01) ==
LOC: LABWHC1 13:01
PROVIDERS: ATTEND Family Medicine
DX: Z00.00 Encounter for general adult medical examination without abnormal findings (principal); I10 Essential (primary) hypertension; I48.0 Paroxysmal atrial fibrillation
CPT/HCPCS: 36415; 80053; 80061; 84153

== ENCOUNTER → 2021-11-23 | Outpatient (CLI) | payer MEDICARE, BC ==
[2021-11-23 15:59] LABS: ALT 20 U/L (10-49); AST 20 U/L (14-35); African American GFR (CKD) 100.6 (60.0-200.0); Albumin 4.4 g/dL (3.8-4.9); Albumin/Globulin Ratio 1.91 (1.60-3.17); Alkaline Phosphatase 61 U/L (41-126); BUN/Creat Ratio 11.56 Ratio (12.00-20.00); Blood Urea Nitrogen 10.4 mg/dL (9.0-27.0); Chloride 105 mmol/L (96-109); Chol/HDL Ratio 2.57 Ratio; Globulin 2.3 g/dL (1.6-3.3); Glucose 100 mg/dL (70-110); LDL Cholesterol,Calculated 55.1 mg/dL (0.0-131.0); Non-African American GFR(CKD) 86.8 (60.0-200.0); Potassium 4.3 mmol/L (3.5-5.5); Sodium 139 mmol/L (135-145); Total Protein 6.7 g/dL (6.2-8.2)
== END | disposition home or self-care (01) ==
LOC: LABWHC1 10:43
PROVIDERS: ATTEND Internal Medicine Interventional Cardiology
DX: E78.2 Mixed hyperlipidemia (principal)
CPT/HCPCS: 36415; 80053; 80061

== ENCOUNTER → 2023-01-03 | Outpatient (CLI) | payer MEDICARE, BC ==
[2023-01-03 16:17] LABS: ALT 18 U/L (10-49); AST 20 U/L (14-35); Albumin 4.4 d/dL (3.8-4.9); Alkaline Phosphatase 57 U/L (41-126); BUN/Creat Ratio 16.12 Ratio (12.00-20.00); Blood Urea Nitrogen 12.9 mg/dL (9.0-27.0); Calcium 9.4 mg/dL (8.7-10.3); Carbon Dioxide 25.2 mmol/L (21.6-31.8); Chloride 104 mmol/L (96-109); Chol/HDL Ratio 2.71 Ratio; Globulin 2.1 d/dL (1.6-3.3); Glucose 105 mg/dL (70-110); LDL Cholesterol,Calculated 59.6 mg/dL (0.0-131.0); Potassium 4.6 mmol/L (3.5-5.5); Sodium 139 mmol/L (135-145); Total Bilirubin 1.4 mg/dL (0.3-1.2); Total Protein 6.5 d/dL (6.2-8.2)
== END | disposition home or self-care (01) ==
LOC: LABWHC1 12:12
PROVIDERS: ATTEND Internal Medicine Interventional Cardiology
DX: I10 Essential (primary) hypertension (principal); E78.2 Mixed hyperlipidemia
CPT/HCPCS: 36415; 80053; 80061

== ENCOUNTER 2023-01-31 06:04 | Day surgery (SDC) | payer MEDICARE, BC ==
[~2023-01-31 06:04] MED LIST: LIDOCAINE 1% (10MG/ML) FOR IV START INTRADERMA PRN
[2023-01-31 06:37] VITALS: RESP 16
[2023-01-31] MEDS: LACTATED RINGERS 1,000 ML IV SCH ×2 (06:41→07:02)
[2023-01-31] MEDS ORDERED: LIDOCAINE 1% INJ 10MG/ML (20 ML MDV) ONE (07:12)
[2023-01-31] MEDS ORDERED: PROPOFOL 10 MG/ML 20 ML VIAL IV ONE (07:12)
--- NOTE | 2023-01-31 07:39 | P.PCN ---
Date of Procedure: 01/31/23 Description of Procedure: Indication: Atrial fibrillation Procedure Description: After explaining the procedure to the patient, it's risk and complications, blood pressure, heart rate and O2 saturation were monitored. The throat was sprayed with Cetacaine. Patient received sedation per anesthesia department. The probe was introduced into the esophagus without difficulty. Images were obtained. Following that, the probe was removed. There was no immediate complication. Findings: Left atrial size is mildly dilated, left atrial appendage is normal. Left ventricular size and systolic function are normal. The aortic valve, mitral valve and tricuspid valve appear to be normal. No pericardial effusion was noted. Descending thoracic aorta appears to be normal. Contrast bubble study revealed no shunting across the interatrial septum. Doppler: Pulse wave and color Doppler were obtained, and revealed mild mitral with mild to moderate tricuspid regurgitation. There was no evidence of shunting by color Doppler study. Conclusion: 1. Mildly dilated left atrium with normal appearance of the left atrial appendage 2. Mild mitral with mild to moderate tricuspid regurgitation 3. No shunting across the intra-atrial septum 4. No pericardial effusion 5. Normal limits size and systolic function Cardioversion: After performing NARGIS in obtaining sedated state synchronized biphasic cardioversion using 150 J was performed with gnosticism of sinus mechanism, there was no immediate complications.
[2023-01-31] MEDS ORDERED: SODIUM CHLORIDE 0.9% 1,000 ML IV SCH (07:45)
[2023-01-31 07:48] VITALS: TEMP 98
[2023-01-31 08:36] VITALS: BP 114/79; PULSE 62
[2023-01-31] MEDS ORDERED: METOPROLOL SUCCINATE (ER) 25 MG TAB.ER.24H PO SCH (09:00)
[2023-01-31] MEDS ORDERED: ATORVASTATIN 20 MG TAB PO SCH (21:00)
[2023-01-31] MEDS ORDERED: RIVAROXABAN 20 MG TAB PO SCH (21:00)
== END 2023-01-31 08:47 | disposition home or self-care (01) ==
LOC: OR 06:04
PROVIDERS: ATTEND Internal Medicine Interventional Cardiology
DX: I07.1 Rheumatic tricuspid insufficiency (principal); I48.91 Unspecified atrial fibrillation; I10 Essential (primary) hypertension; E78.5 Hyperlipidemia, unspecified; F10.90 Alcohol use, unspecified, uncomplicated; Z87.891 Personal history of nicotine dependence; Z79.01 Long term (current) use of anticoagulants; Z79.899 Other long term (current) drug therapy
CPT/HCPCS: 93312; 93320; 93325; 92960; J2001; J2704

== ENCOUNTER → 2023-05-23 | Outpatient (CLI) | payer MEDICARE ==
[2023-05-23 18:41] LABS: ALT 17 U/L (10-49); AST 18 U/L (14-35); Albumin 4.5 g/dL (3.8-4.9); Albumin/Globulin Ratio 2.14 Ratio (1.60-3.17); Alkaline Phosphatase 54 U/L (41-126); BUN/Creat Ratio 23.38 Ratio (12.00-20.00); Blood Urea Nitrogen 18.7 mg/dL (9.0-27.0); Calcium 9.4 mg/dL (8.7-10.3); Carbon Dioxide 22.3 mmol/L (21.6-31.8); Chloride 105 mmol/L (96-109); Chol/HDL Ratio 2.44 Ratio; Globulin 2.1 g/dL (1.6-3.3); Glucose 97 mg/dL (70-110); Potassium 4.6 mmol/L (3.5-5.5); Sodium 139 mmol/L (135-145); Total Bilirubin 1.6 mg/dL (0.3-1.2); Total Protein 6.6 g/dL (6.2-8.2); VLDL Calculation 18.64 mg/dL (5.00-40.00)
== END | disposition home or self-care (01) ==
LOC: LABWHC1 11:15
PROVIDERS: ATTEND Internal Medicine Interventional Cardiology
DX: E78.2 Mixed hyperlipidemia (principal)
CPT/HCPCS: 36415; 80053; 80061

== ENCOUNTER → 2023-11-19 | Outpatient (CLI) | payer MEDICARE ==
[2023-11-19 16:44] LABS: ALT 26 U/L (10-49); AST 22 U/L (14-35); Albumin 4.6 g/dL (3.8-4.9); Alkaline Phosphatase 65 U/L (41-126); BUN/Creat Ratio 14.62 Ratio (12.00-20.00); Blood Urea Nitrogen 11.7 mg/dL (9.0-27.0); Calcium 9.2 mg/dL (8.7-10.3); Carbon Dioxide 23.9 mmol/L (21.6-31.8); Chloride 104 mmol/L (96-109); Chol/HDL Ratio 2.72 Ratio; Glucose 105 mg/dL (70-110); LDL Cholesterol,Calculated 70.8 mg/dL (0.0-131.0); Potassium 4.5 mmol/L (3.5-5.5); Sodium 139 mmol/L (135-145); Total Bilirubin 1.1 mg/dL (0.3-1.2); Total Protein 6.6 g/dL (6.2-8.2)
== END | disposition home or self-care (01) ==
LOC: LABWHC1 11:16
PROVIDERS: ATTEND Internal Medicine Interventional Cardiology
DX: E78.2 Mixed hyperlipidemia (principal)
CPT/HCPCS: 36415; 80053; 80061

== ENCOUNTER → 2024-04-03 | Outpatient (CLI) | payer MEDICARE ==
[2024-04-03 15:04] LABS: HGB 15.8 g/dL (13.0-17.0); MCHC 32.2 g/dL (32.0-37.0); MCV 93.2 FL (80.0-97.0); Mean Platelet Volume 11.6 FL (9.5-12.2); NRBC Per 100 WBC 0 X 10*3/uL (0.00-0.01); Platelet Count 234 X 10*3/uL (140-440); RBC 5.26 X 10*6/uL (4.40-5.60); RDW 12.2 % (11.5-14.5)
[2024-04-03 15:16] LABS: ALT 22 U/L (10-49); AST 20 U/L (14-35); Blood Urea Nitrogen 13.5 mg/dL (9.0-27.0); Carbon Dioxide 25.8 mmol/L (21.6-31.8); Chloride 105 mmol/L (96-109); Chol/HDL Ratio 3.14 Ratio; LDL Cholesterol,Calculated 70.1 mg/dL (0.0-131.0); Potassium 4.2 mmol/L (3.5-5.5); Sodium 140 mmol/L (135-145)
== END | disposition home or self-care (01) ==
LOC: LABPAT 08:08
PROVIDERS: ATTEND Internal Medicine Clinical Cardiac Electrophysiology
DX: Z01.812 Encounter for preprocedural laboratory examination (principal); I48.19 Other persistent atrial fibrillation; E78.2 Mixed hyperlipidemia
CPT/HCPCS: 80051; 80061; 82565; 84450; 84460; 84520; 85027

== ENCOUNTER 2024-04-08 05:45 | Day surgery (SDC) | payer MEDICARE ==
[2024-04-08] MEDS: IV FLUID CONTINUATION 1,000 ML IV ONE (06:28)
[2024-04-08] MEDS: SODIUM CHLORIDE 0.9% 1,000 ML IV SCH (06:28)
[2024-04-08] MEDS ORDERED: NEOSTIGMINE 1 MG/ML 10 ML VIAL ONE (07:21)
[2024-04-08] MEDS ORDERED: PHENYLEPHRINE 10 MG/ML VIAL ONE (07:21)
[2024-04-08] MEDS ORDERED: HEPARIN SODIUM,PORCINE 10,000 UNIT/ML 1 ML VIAL ONE (07:21)
[2024-04-08] MEDS ORDERED: LIDOCAINE 1% INJ 10MG/ML (20 ML MDV) ONE (07:21)
[2024-04-08] MEDS ORDERED: SUCCINYLCHOLINE CHLORIDE 200 MG/10 ML VIAL IV ONE (07:21)
[2024-04-08] MEDS ORDERED: GLYCOPYRROLATE 0.2 MG/ML 2 ML VIAL ONE (07:21)
[2024-04-08] MEDS ORDERED: WATER FOR INJECTION, STERILE 10 ML VIAL IV ONE (07:21)
[2024-04-08] MEDS ORDERED: ROCURONIUM 10 MG/ML (5 ML VIAL) IV ONE (07:21)
[2024-04-08] MEDS ORDERED: HEPARIN SODIUM,PORCINE 5,000 UNIT/ML 1 ML VIAL ONE (07:21)
[2024-04-08] MEDS ORDERED: ePHEDrine 50 MG/ML 1 ML VIAL ONE (07:21)
[2024-04-08] MEDS ORDERED: PROPOFOL 10 MG/ML 20 ML VIAL IV ONE (07:21)
[2024-04-08] MEDS ORDERED: fentaNYL (PF) 50 MCG/ML 2 ML AMP ONE (07:21)
[2024-04-08 07:50] LABS: T4, Free (Free Thyroxine) 1.03 ng/dL (0.78-2.19)
--- NOTE | 2024-04-08 07:54 | P.HPCAR ---
History of Present Illness This is Dr. Cade dictating an H/P on this patient The patient was interviewed and examined IMPRESSION / ASSESSMENT: History of recurrent atrial fibrillation since 2017, paroxysmal Symptomatic despite adequate rate control during atrial fibrillation Symptoms of tiredness fatigue shortness of breath as well as hypotension Multiple electrical cardioversions over the years Preserved LV systolic function PLAN: Proceed with A-fib ablation Heparin dose calculated Uninterrupted Xarelto to continue HPI Patient continues to have episodes of atrial fibrillation. These episodes are quite symptomatic and associated with shortness of breath and being very tired and fatigued. His blood pressure is low He has never lost consciousness In the last few weeks he has not experienced any angina or any undue shortness of breath Denies any fever chills or infection anywhere ROS: No fever chills or rigors, no cough, phlegm or expectoration, no nausea, vomiting or diarrhea, no hematuria, dysuria, no musculoskeletal complaints, no strokes or seizures, no skin lesions. EXAMINATION: Pulse 65, blood pressure 148/90 mmHg afebrile Breath sounds are clear no rhonchi no crackles Heart sounds are normal regular no murmurs no gallop no rub Abdomen soft nontender No lower extremity edema No JVD REVIEW OF LABS, ECG & MEDICAL DATA TSH 4.86 Xarelto metoprolol and atorvastatin are his current medications transfer to Physical Exam Vitals: Vital Signs Temp Pulse Resp BP Pulse Ox 04/08/24 06:28 98.1 F 65 16 148/90 98 Intake and Output 04/07/24 04/08/24 04/08/24 22:59 06:59 14:59 Intake Total 50 Balance 50 Intake: IV 50 Other: Weight 92.8 kg Past Medical History Past Medical History: Atrial Fibrillation, GERD/Reflux, Hyperlipidemia, Hypertension Additional Past Medical History / Comment(s): Past benign colon polyps see dr cade's h & p History of Any Multi-Drug Resistant Organisms: None Reported Past Surgical History: Hernia Repair Additional Past Surgical History / Comment(s): Bilateral inguinal hernia repairs, NARGIS, cardioversion, colonoscopies Past Anesthesia/Blood Transfusion Reactions: No Reported Reaction Additional Past Anesthesia/Blood Transfusion Reaction / Comment(s): IGa deficient no whole blood products Smoking Status: Former smoker - Past Family History Father Family Medical History: Cancer Additional Family Medical History / Comment(s): from cancer at age 74 yrs. Mother Additional Family Medical History / Comment(s): at 98yrs. Physical Examination Vital Signs Temp Pulse Resp BP Pulse Ox 04/08/24 06:28 98.1 F 65 16 148/90 98 Intake and Output 04/07/24 04/08/24 04/08/24 22:59 06:59 14:59 Intake Total 50 Balance 50 Intake: IV 50 Other: Weight 92.8 kg Results Current Medications Generic Name Dose Route Start Last Admin Trade Name Monique PRN Reason Stop Dose Admin Sodium Chloride 1,000 mls @ 20 mls/hr 04/08/24 05:55 04/08/24 06:28 Saline 0.9% IV 05/08/24 05:54 20 mls/hr .Q24H NANCY Administration Intake and Output 04/07/24 04/08/24 04/08/24 22:59 06:59 14:59 Intake Total 50 Balance 50 Intake: IV 50 Other: Weight 92.8 kg
[2024-04-08] MEDS: LIDOCAINE 1% INJ 10MG/ML (20 ML MDV) SQ ONE (07:59)
[2024-04-08] MEDS: HEPARIN SOD,PORK IN 0.45% NACL 25,000 UNIT in 0.45% NACL 1 250ML.BAG IV ONE (08:00)
[2024-04-08] MEDS: HEPARIN SODIUM,PORCINE 10,000 UNIT in SODIUM CHLORIDE 0.9% 1,000 ML IRRIGATION ONE (08:00)
--- NOTE | 2024-04-08 09:44 | P.PRLE ---
RE: Juan Aly Dear Andrea Martinez underwent an A-fib ablation with pulm vein isolation the management of atrial fibrillation. Subsequently at EP study we were able to induce atrial flutter and he underwent successful atrial flutter ablation to He will continue Xarelto uninterrupted for the next 2 months to reduce risk of stroke Long-term anticoagulation only based on his [id number] score Thank you for entrusting me with the care of the patient Warm regards Sincerely Rene Cade
[2024-04-08] MEDS: HEPARIN SODIUM (1,000 UNIT/ML) 1,000 UNIT in SODIUM CHLORIDE 0.9% 1,000 ML IRRIGATION ONE (10:13)
[2024-04-08] MEDS: IOPAMIDOL-370 100ML BTL INJ ONE (10:53)
[2024-04-08] MEDS: ACETAMINOPHEN IV (For NPO) 1,000 MG in EMPTY BAG 1 BAG IVPB ONE (14:00)
--- NOTE | 2024-04-08 19:02 | P.EPPROC ---
- EP Procedure Note Electrophysiology Procedure Note: PROCEDURE A. fib ablation with PVI and left atrial septal ablation Ablation for typical atrial flutter DIAGNOSIS Paroxysmal atrial fibrillation, symptomatic, refractory to therapy RESULT No left atrial appendage mass seen on intracardiac echo Successful A. fib ablation/pulmonary vein isolation of all veins using cryo- ablation Complete entrance block in all 4 veins confirmed No evidence for phrenic nerve injury Left atrial septal ablation Ablation for typical atrial flutter with bidirectional block Esophageal deflection YES PROCEDURE DETAILS Written informed consent prior to procedure. Patient brought to the EP lab. General anesthesia given. Heparin administered. A city maintained above 300 seconds Both groins prepped and draped per protocol and venous sheaths placed. Esophagus intubated, circa catheter for temperature monitoring an endoscope for possible esophageal deflection. Phrenic nerve monitoring performed. Esophageal temperature monitoring performed. Esophageal deflection performed if circa catheter overlapping with the balloon or circa temperature less than 27.5C Intracardiac echocardiography performed. Pericardium evaluated. Left atrial appendage evaluated. Left atrium evaluated along with pulmonary veins Transseptal catheterization performed under fluoroscopic guidance and intracardiac echo guidance Cryoablation sheath exchanged, balloon catheter along with achieve catheter placed in the left atrium. Pulmonary veins isolated in the following sequence: Left superior pulmonary vein followed by left inferior pulmonary vein, followed by right inferior pulmonary vein and lastly right superior pulmonary vein. Phrenic nerve stimulation along with capture thresholds within the SVC and right superior pulmonary vein to identify the phrenic nerve proximity to the cryo- balloon. Pulmonary veins isolated and confirmed with entrance and exit block. Phrenic nerve integrity confirmed at the end of the procedure Ablation of the left atrial septum performed with cannulation of the superior branch of the right inferior and the inferior branch of the right superior vein to achieve ablation of the posterior septum of the left atrium. Ablation of electrograms confirmed Inducible atrial flutter, typical confirmed with entrainment mapping. Successful atrial flutter ablation performed in sinus rhythm with confirmed bidirectional block with differential pacing Diagnostic catheters for the high right atrium, His bundle, coronary sinus placed. LA and RA pressures recorded RA pressure: 16/2/7 LA pressure: 14/5/10 Diagnostic EP study with coronary sinus pacing and recording Baseline measurements: Sinus cycle length 1232, NH interval 181 ms, QRS 116 ms and QT 448 ms AH 103 and HV 48 ms Sinus node recovery times were 1312, 1254 and 1252 ms AV node Wenckebach block 350 ms Burst stimulation and atrial extra stimulation was performed Atrial extra stimulation at 500/250 ms resulted in induction of atrial fibrillation that quickly organized into an atrial flutter, which was confirmed to be typical atrial flutter with entrainment mapping Venous sheaths were removed and hemostasis assured with a closure device. Patient extubated and transferred to recovery PROCEDURES PERFORMED Diagnostic EP study CS pacing and recording Left and right transseptal catheterization Catheter the mapping of the tachycardia Intracardiac echocardiography Pulmonary vein isolation with transseptal and comprehensive EPS, [id number] Linear ablation, left atrium, +[id number] Electrical cardioversion with a synchronized shock across the chest [id number] Ablation for typical atrial flutter, linear ablation, +[id number]
[2024-04-08 20:57] LABS: Glucose,Whole Blood 126 mg/dL (70-110)
[2024-04-08] MEDS: METOPROLOL SUCCINATE (ER) 25 MG TAB.ER.24H PO SCH (21:16)
[2024-04-08] MEDS: ATORVASTATIN 20 MG TAB PO SCH (21:17)
[2024-04-08] MEDS: RIVAROXABAN 20 MG TAB PO SCH (21:17)
[2024-04-09] MEDS: ACETAMINOPHEN TAB 325 MG TAB PO PRN (05:44)
[2024-04-09 08:12] VITALS: BP 118/78; PULSE 71; RESP 16; TEMP 97.8
--- NOTE | 2024-04-11 07:30 | P.DS ---
Providers Attending physician: Rene Cade Primary care physician: Andrea Reyna MD Hospital Course: Patient is doing well. No chest discomfort dizziness lightheadedness or palpitations Groins of healed well no hematoma no swelling Heart sounds S1-S2 normal Breath sounds are clear no rhonchi no crackles Vitals are stable Impression Recurrent atrial fibrillation, paroxysmal Status post PVI left atrial septal ablation Easily inducible typical atrial flutter status post successful ablation Plan Continue Eliquis and other cardiac medications and follow-up with Dr. 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 Plan - Discharge Summary Discharge Rx Participant: No New Discharge Prescriptions: Continue Metoprolol Succinate [Toprol XL] 12.5 mg PO BID Atorvastatin [Lipitor] 20 mg PO HS Rivaroxaban [Xarelto] 20 mg PO HS Vit D (Unk) 1 tab PO WEEKLY Discharge Medication List Atorvastatin [Lipitor] 20 mg PO HS 04/23/21 [History] Metoprolol Succinate [Toprol XL] 12.5 mg PO BID 04/23/21 [History] Rivaroxaban [Xarelto] 20 mg PO HS 01/30/23 [History] Vit D (Unk) 1 tab PO WEEKLY 04/02/24 [History] Follow up Appointment(s)/Referral(s): Arturo Jackson MD [STAFF PHYSICIAN] - 04/15/24 2:00 pm Patient Instructions/Handouts: Cardiac Ablation (DC) Activity/Diet/Wound Care/Special Instructions: Post EP study - Ablation instructions 1. Keep access sites dry for 2 days. 2. No heavy lifting or straining for 2 days. 3. Avoid bending the hips repeatedly for 2 days. 4. You may go up and down stairs slowly 5. If you have had an ablation for atrial fibrillation or atrial flutter and are on a blood thinner, do not stop the blood thinner even temporarily for 3 months post ablation Call if the following is noted 1. Bleeding, increasing swelling or pain at the access sites. 2. Increasing chest discomfort, especially upon taking a deep breath. 3. Increasing shortness of breath, at rest or with exertion. 4. Undue cough / phlegm 5. Difficulty or pain while swallowing. 6. Pain or change in color in the extremities. 7. Fever, chills, rigors. 8. Increasing headache or neurologic symptoms. 9. Dizziness, fainting, palpitations For patients who have undergone an A-fib ablation /atrial flutter ablation Strict instruction; do NOT stop anticoagulation (Eliquis/Xarelto/Pradaxa) for the next 2 months temporarily, for any elective, nonurgent surgery. This increases the risk of stroke, post A-fib ablation Discharge Disposition: HOME SELF-CARE
== END 2024-04-09 10:11 | disposition home or self-care (01) ==
LOC: CATHEP 05:45 → 6NMEDSUR 12:39 → CATHEP 04-09 10:11
PROVIDERS: ATTEND Internal Medicine Clinical Cardiac Electrophysiology
DX: I48.0 Paroxysmal atrial fibrillation (principal); I48.3 Typical atrial flutter; I10 Essential (primary) hypertension; E78.5 Hyperlipidemia, unspecified; I08.1 Rheumatic disorders of both mitral and tricuspid valves; K21.9 Gastro-esophageal reflux disease without esophagitis; Z79.01 Long term (current) use of anticoagulants; Z79.899 Other long term (current) drug therapy; Z87.891 Personal history of nicotine dependence
CPT/HCPCS: 92960; 93655; 93656; 86900; 86901; 84439; 84443; 86850; C1759 ×2; C1894; C1769; C1760 ×3; C1730 ×2; C1733; C1766; C1732; J0330; J1644 ×4; J2710; J2003; J3010; J0131; J2704; Q9967; J2371; J1596; 93005

== ENCOUNTER → 2024-06-16 | Outpatient (CLI) | payer MEDICARE ==
[2024-06-16 15:39] LABS: ALT 25 U/L (10-49); AST 24 U/L (14-35); Albumin 4.3 g/dL (3.8-4.9); Albumin/Globulin Ratio 1.95 Ratio (1.60-3.17); Alkaline Phosphatase 60 U/L (41-126); Blood Urea Nitrogen 10.4 mg/dL (9.0-27.0); Calcium 9.2 mg/dL (8.7-10.3); Chloride 106 mmol/L (96-109); Chol/HDL Ratio 2.48 Ratio; Globulin 2.2 g/dL (1.6-3.3); Glucose 122 mg/dL (70-110); LDL Cholesterol,Calculated 52.5 mg/dL (0.0-131.0); Potassium 4.1 mmol/L (3.5-5.5); Sodium 141 mmol/L (135-145); Total Bilirubin 1.2 mg/dL (0.3-1.2); Total Protein 6.5 g/dL (6.2-8.2)
== END | disposition home or self-care (01) ==
LOC: LABWHC1 09:28
PROVIDERS: ATTEND Internal Medicine Interventional Cardiology
DX: E78.2 Mixed hyperlipidemia (principal)
CPT/HCPCS: 36415; 80053; 80061